=== PATIENT | female | born 1935 | race Caucasian/White ===

== ENCOUNTER 2021-09-21 10:06 | Inpatient (IN) ==
[2021-09-21] MEDS ORDERED: levoFLOXacin 750 MG/150 ML 750 MG/150 ML BAG IVPB ONE (10:14)
[2021-09-21 10:42] LABS: Basophils # 0.1 K/mcL (0.0-0.2); Basophils % 0.7 %; Eosinophils % 0.4 %; Hematocrit 27.5 % (35.3-44.9); Hemoglobin 8.4 g/dL (11.5-15.4); Immature Granulocytes % 0.9 % (0-4); Lymphocytes # 0.9 K/mcL (0.6-4.6); Lymphocytes % 12.7 %; Mean Corpuscular HGB Conc 30.5 g/dL (31.6-35.5); Mean Corpuscular Hemoglobin 27.5 pg (28.0-33.3); Mean Corpuscular Volume 90.2 fL (83.0-100.0); Mean Platelet Volume 10.7 fL (9.4-12.4); Monocytes # 0.9 K/mcL (0.0-1.3); Monocytes % 12.4 %; Neutrophils # 5.4 K/mcL (1.6-8.9); Platelet Count 214 K/mcL (140-400); Red Blood Count 3.05 M/mcL (3.82-4.97); Red Cell Distribution Width 18.5 % (11.5-14.5); Segmented Neutrophils % 72.9 %; White Blood Count 7.4 K/mcL (4.3-11.1)
[2021-09-21 10:54] LABS: INR 1.2; Prothrombin Time 13.7 Seconds (9.4-12.1)
[2021-09-21 10:57] LABS: Activated Partial Thrombo Time 27.4 Seconds (26.0-36.0)
[2021-09-21 11:01] LABS: Albumin 3.3 g/dL (3.5-5.7); Bilirubin,Direct 0.2 mg/dL (0.0-0.2); Bilirubin,Indirect 0.3 mg/dL (0.0-1.0); Bilirubin,Total 0.5 mg/dL (0.3-1.0); Globulin 3.4 g/dL (2.4-3.5); Magnesium 1.2 mg/dL (1.6-2.6); Phosphorous 3.4 mg/dL (2.7-4.5); Potassium 3.4 mEq/L (3.5-5.1); Total Protein 6.7 g/dL (6.4-8.9)
[2021-09-21 11:04] LABS: Troponin I 0.03 ng/mL (< 0.04)
[2021-09-21] MEDS ORDERED: 0.9 % Sodium Chloride 1,000 ML IVC ONE (11:34)
[2021-09-21 12:21] LABS: Bilirubin,Urine Negative (Negative); Blood,Urine Negative (Negative); Clarity,Urine Hazy (Clear); Color,Urine Yellow (Yellow); Glucose,Urine (UA) Normal (Normal); Ketones,Urine Negative (Negative); Leukocyte Esterase,Urine Negative (Negative); Nitrite,Urine Negative (Negative); PH,Urine 5.5 pH Units (5.0-8.0); Protein,Urine Negative (Neg-Trace); Urobilinogen,Urine Normal (Normal)
[2021-09-21] MEDS ORDERED: Naloxone 0.4 MG/ML INJ IVP PRN (16:54)
[2021-09-21] MEDS ORDERED: Melatonin 3 MG TABLET PO PRN (16:56)
[2021-09-21] MEDS ORDERED: Potassium Chloride Elixir 20 MEQ/15 ML UDC PO ONE (17:32)
[2021-09-21 17:38] LABS: ABG Base Excess -2 mEq/L (-2 to 3); ABG HCO3 23 mEq/L (21-27); ABG Oxygen Saturation 96 % (95-98); ABG PCO2 40 mmHg (35-45); ABG PH 7.37 pH Units (7.32-7.45); ABG PO2 82 mmHg (85-104); ABG TCO2 24 mEq/L (20-26)
[2021-09-21] MEDS: 0.9 % Sodium Chloride 1,000 ML IVC SCH (20:19)
[2021-09-21] MEDS: Budesonide/Formoterol 160/4.5 1 PUFF INH IH SCH (20:24)
[2021-09-21] MEDS ORDERED: Acetaminophen 650 MG RECTAL SUPP RC PRN (20:37)
[2021-09-21] MEDS ORDERED: *HR* LORazepam 2 MG/ML VIAL IVP ONE (20:49)
[2021-09-21] MEDS: QUEtiapine Fumarate 25 MG TABLET PO SCH (22:26)
[2021-09-22] MEDS ORDERED: Acetaminophen IV 500 MG/50 ML BAG IVPB ONE ×2 (00:01→03:24)
[2021-09-22] MEDS ORDERED: Ketorolac 15 MG/ML VIAL IVP ONE (00:02)
[2021-09-22] MEDS ORDERED: Acetaminophen IV 1,000 MG/100 ML BAG IVPB ONE ×2 (00:34→03:41)
[2021-09-22] MEDS ORDERED: Haloperidol Lactate 5 MG/ML VIAL IVP ONE (03:00)
[2021-09-22 03:53] LABS: Basophils % 0.4 %; Hematocrit 24.5 % (35.3-44.9); Hemoglobin 7.5 g/dL (11.5-15.4); Immature Granulocytes % 1.8 % (0-4); Lymphocytes # 0.8 K/mcL (0.6-4.6); Lymphocytes % 9.7 %; Mean Corpuscular HGB Conc 30.6 g/dL (31.6-35.5); Mean Corpuscular Hemoglobin 27.7 pg (28.0-33.3); Mean Corpuscular Volume 90.4 fL (83.0-100.0); Mean Platelet Volume 10.8 fL (9.4-12.4); Monocytes # 0.3 K/mcL (0.0-1.3); Monocytes % 3.7 %; Platelet Count 246 K/mcL (140-400); Red Blood Count 2.71 M/mcL (3.82-4.97); Red Cell Distribution Width 18.6 % (11.5-14.5); Segmented Neutrophils % 84.4 %; White Blood Count 8.3 K/mcL (4.3-11.1)
[2021-09-22 04:33] LABS: Calcium 8.7 mg/dL (8.6-10.3); Magnesium 1.7 mg/dL (1.6-2.6); Potassium 3.6 mEq/L (3.5-5.1)
[2021-09-22 06:46] LABS: Adenovirus Not Detected (Not Detect); Bordetella Pertussis Not Detected (Not Detect); Chlamydophila pneumoniae Not Detected (Not Detect); Coronavirus 229E Not Detected (Not Detect); Coronavirus HKU1 Not Detected (Not Detect); Coronavirus NL63 Not Detected (Not Detect); Coronavirus OC43 Not Detected (Not Detect); Human Metapneumovirus Not Detected (Not Detect); Human Rhinovirus/Enterovirus Not Detected (Not Detect); Influenza A Subtype 2009 H1 Not Detected (Not Detect); Influenza B Not Detected (Not Detect); Mycoplasma pneumoniae Not Detected (Not Detect); Parainfluenza Virus 1 Not Detected (Not Detect); Parainfluenza Virus 2 Not Detected (Not Detect); Parainfluenza Virus 3 Not Detected (Not Detect); Parainfluenza Virus 4 Not Detected (Not Detect); Respiratory Syncytial Virus Not Detected (Not Detect); SARS-CoV-2 Not Detected (Not Detect)
[2021-09-22] MEDS: Fluticasone Propionate Nasal 50 MCG/SPRAY BOTTLE NS SCH ×2 (07:38→18:13)
[2021-09-22] MEDS: atenoloL 50 MG TABLET PO SCH (08:52)
[2021-09-22] MEDS: (Potassium 99 MG Tablet) PO SCH (08:52)
[2021-09-22] MEDS: Multivit/Ca/Min/Fe/FA 1 TAB TABLET PO SCH (08:52)
[2021-09-22] MEDS: Loratadine 10 MG TABLET PO SCH (08:52)
[2021-09-22] MEDS: Magnesium Oxide 400 MG TABLET PO SCH (08:52)
[2021-09-22] MEDS ORDERED: POTASSIUM CHLORIDE IN 0.9%NACL 40 MEQ/1,000 ML IV.SOLN IV ONE (09:00)
[2021-09-22] MEDS ORDERED: Aspirin Enteric Coated 81 MG Tablet PO SCH (09:00)
[2021-09-22] MEDS ORDERED: levoFLOXacin 750 MG/150 ML 750 MG/150 ML BAG IVPB SCH (09:00)
[2021-09-22] MEDS: 0.9 % Sodium Chloride 1,000 ML IVC SCH ×3 (09:23→23:11)
[2021-09-22 10:17] LABS: Hematocrit 22.1 % (35.3-44.9); Hemoglobin 6.7 g/dL (11.5-15.4)
[2021-09-22] MEDS: Budesonide/Formoterol 160/4.5 1 PUFF INH IH SCH (10:57)
[2021-09-22] MEDS ORDERED: 0.9 % Sodium Chloride 250 ML IVC SCH (11:00)
[2021-09-22] MEDS: QUEtiapine Fumarate 25 MG TABLET PO SCH (21:24)
[2021-09-22 22:12] LABS: Hematocrit 25.7 % (35.3-44.9); Hemoglobin 7.8 g/dL (11.5-15.4)
[2021-09-23] MEDS ORDERED: *HR* Enoxaparin 30 MG/0.3 ML SYRINGE SQ SCH (06:00)
[2021-09-23 07:50] LABS: Basophils # 0.1 K/mcL (0.0-0.2); Basophils % 0.8 %; Eosinophils # 0.2 K/mcL (0.0-0.6); Eosinophils % 1.4 %; Hematocrit 28.1 % (35.3-44.9); Hemoglobin 8.4 g/dL (11.5-15.4); Immature Granulocytes % 3.3 % (0-4); Lymphocytes # 1.1 K/mcL (0.6-4.6); Lymphocytes % 10.1 %; Mean Corpuscular HGB Conc 29.9 g/dL (31.6-35.5); Mean Corpuscular Hemoglobin 27.5 pg (28.0-33.3); Mean Corpuscular Volume 92.1 fL (83.0-100.0); Mean Platelet Volume 10.3 fL (9.4-12.4); Monocytes % 9.7 %; Neutrophils # 7.7 K/mcL (1.6-8.9); Platelet Count 201 K/mcL (140-400); Red Blood Count 3.05 M/mcL (3.82-4.97); Red Cell Distribution Width 19.2 % (11.5-14.5); Segmented Neutrophils % 74.7 %; White Blood Count 10.4 K/mcL (4.3-11.1)
[2021-09-23 08:16] LABS: Calcium 8.2 mg/dL (8.6-10.3); Potassium 3.4 mEq/L (3.5-5.1)
[2021-09-23] MEDS: Loratadine 10 MG TABLET PO SCH (09:21)
[2021-09-23] MEDS: Magnesium Oxide 400 MG TABLET PO SCH (09:21)
[2021-09-23] MEDS: (Potassium 99 MG Tablet) PO SCH (09:21)
[2021-09-23] MEDS: Multivit/Ca/Min/Fe/FA 1 TAB TABLET PO SCH (09:21)
[2021-09-23] MEDS: D5% in 0.45% NACL 1,000 ML IVC SCH ×2 (09:47→23:25)
[2021-09-23] MEDS: levoFLOXacin 750 MG/150 ML 750 MG/150 ML BAG IVPB SCH (09:48)
[2021-09-23] MEDS: Morphine Sulfate 2 MG/ML SYRINGE IVP PRN ×3 (09:49→20:06)
[2021-09-23] MEDS ORDERED: Levothyroxine Sodium 100 MCG VIAL IVP SCH (15:00)
[2021-09-23] MEDS ORDERED: OLANZapine 10 MG VIAL IM ONE (15:00)
[2021-09-23] MEDS: Levothyroxine Sodium 100 MCG VIAL IVP SCH (15:34)
[2021-09-23] MEDS: FLUoxetine HCl Oral Soln 20 MG/5 ML UDC PO SCH (15:41)
[2021-09-23] MEDS: Fluticasone Propionate Nasal 50 MCG/SPRAY BOTTLE NS SCH (18:44)
[2021-09-23] MEDS ORDERED: Haloperidol Lactate 5 MG/ML VIAL IVP ONE (23:10)
[2021-09-24] MEDS: Morphine Sulfate 2 MG/ML SYRINGE IVP PRN (01:52)
[2021-09-24 07:09] LABS: Basophils # 0.1 K/mcL (0.0-0.2); Basophils % 0.9 %; Eosinophils # 0.1 K/mcL (0.0-0.6); Eosinophils % 2.3 %; Hematocrit 25.8 % (35.3-44.9); Hemoglobin 7.7 g/dL (11.5-15.4); Immature Granulocytes % 2.1 % (0-4); Lymphocytes # 0.8 K/mcL (0.6-4.6); Lymphocytes % 13.6 %; Mean Corpuscular HGB Conc 29.8 g/dL (31.6-35.5); Mean Corpuscular Hemoglobin 27.3 pg (28.0-33.3); Mean Corpuscular Volume 91.5 fL (83.0-100.0); Mean Platelet Volume 10.4 fL (9.4-12.4); Monocytes # 0.6 K/mcL (0.0-1.3); Monocytes % 10.6 %; Neutrophils # 4.1 K/mcL (1.6-8.9); Platelet Count 171 K/mcL (140-400); Red Blood Count 2.82 M/mcL (3.82-4.97); Red Cell Distribution Width 19.4 % (11.5-14.5); Segmented Neutrophils % 70.5 %; White Blood Count 5.7 K/mcL (4.3-11.1)
[2021-09-24 08:13] LABS: BUN/Creatinine Ratio 46 (6-26); Blood Urea Nitrogen 45 mg/dL (8-23); Calcium 8.2 mg/dL (8.6-10.3); Carbon Dioxide 25 mEq/L (23-29); Chloride 117 mEq/L (98-107); Glucose 109 mg/dL (70-105); Osmolality,Calculated 318 (280-300); Sodium 148 mEq/L (136-145); eGFR For African Americans > 60 (> 60); eGFR For Non-African Americans 54 (> 60)
[2021-09-24] MEDS: atenoloL 50 MG TABLET PO SCH (09:18)
[2021-09-24] MEDS: (Potassium 99 MG Tablet) PO SCH (09:18)
[2021-09-24] MEDS: Levothyroxine Sodium 100 MCG VIAL IVP SCH (09:18)
[2021-09-24] MEDS: Magnesium Oxide 400 MG TABLET PO SCH (09:18)
[2021-09-24] MEDS: Loratadine 10 MG TABLET PO SCH (09:18)
[2021-09-24] MEDS: Multivit/Ca/Min/Fe/FA 1 TAB TABLET PO SCH (09:19)
[2021-09-24] MEDS: Potassium Chloride 20 MEQ in D5% in Water 1,000 ML IVC SCH ×2 (10:10→23:42)
[2021-09-24] MEDS: Nystatin POWDER 30 GM BOTTLE TP SCH ×2 (12:10→20:29)
[2021-09-24] MEDS: Fluticasone Propionate Nasal 50 MCG/SPRAY BOTTLE NS SCH (16:59)
[2021-09-24] MEDS ORDERED: Haloperidol Lactate 5 MG/ML VIAL IM PRN (18:17)
[2021-09-24] MEDS ORDERED: Acetaminophen 650 MG RECTAL SUPP RC PRN (23:22)
[2021-09-25] MEDS ORDERED: Ketorolac 15 MG/ML VIAL IVP ONE (03:45)
[2021-09-25 05:52] LABS: Basophils % 0.5 %; Eosinophils # 0.1 K/mcL (0.0-0.6); Eosinophils % 0.6 %; Hemoglobin 7.9 g/dL (11.5-15.4); Immature Granulocytes % 1.7 % (0-4); Lymphocytes % 12.8 %; Mean Corpuscular HGB Conc 30.4 g/dL (31.6-35.5); Mean Corpuscular Hemoglobin 27.2 pg (28.0-33.3); Mean Corpuscular Volume 89.7 fL (83.0-100.0); Mean Platelet Volume 10.3 fL (9.4-12.4); Monocytes # 0.8 K/mcL (0.0-1.3); Monocytes % 10.3 %; Neutrophils # 5.8 K/mcL (1.6-8.9); Platelet Count 194 K/mcL (140-400); Red Cell Distribution Width 19.2 % (11.5-14.5); Segmented Neutrophils % 74.1 %; White Blood Count 7.9 K/mcL (4.3-11.1)
[2021-09-25 06:38] LABS: BUN/Creatinine Ratio 38 (6-26); Blood Urea Nitrogen 34 mg/dL (8-23); Calcium 8.4 mg/dL (8.6-10.3); Carbon Dioxide 23 mEq/L (23-29); Chloride 115 mEq/L (98-107); Glucose 131 mg/dL (70-105); Osmolality,Calculated 313 (280-300); Potassium 3.3 mEq/L (3.5-5.1); Sodium 147 mEq/L (136-145); eGFR For African Americans > 60 (> 60); eGFR For Non-African Americans > 60 (> 60)
[2021-09-25] MEDS ORDERED: Furosemide 20 MG/2 ML VIAL IVP ONE (08:30)
[2021-09-25] MEDS: levoFLOXacin 750 MG/150 ML 750 MG/150 ML BAG IVPB SCH (08:52)
[2021-09-25] MEDS: Loratadine 10 MG TABLET PO SCH (08:53)
[2021-09-25] MEDS: Magnesium Oxide 400 MG TABLET PO SCH (08:53)
[2021-09-25] MEDS: (Potassium 99 MG Tablet) PO SCH (08:54)
[2021-09-25] MEDS: Multivit/Ca/Min/Fe/FA 1 TAB TABLET PO SCH (08:54)
[2021-09-25] MEDS: Nystatin POWDER 30 GM BOTTLE TP SCH ×2 (08:54→21:17)
[2021-09-25] MEDS: atenoloL 50 MG TABLET PO SCH (08:54)
[2021-09-25] MEDS: Levothyroxine Sodium 100 MCG VIAL IVP SCH (10:55)
[2021-09-25] MEDS: Potassium Chloride 20 MEQ in D5% in Water 1,000 ML IVC SCH (15:25)
[2021-09-25] MEDS: Fluticasone Propionate Nasal 50 MCG/SPRAY BOTTLE NS SCH (16:51)
[2021-09-25] MEDS: FLUoxetine HCl Oral Soln 20 MG/5 ML UDC PO SCH (16:51)
[2021-09-25] MEDS: Morphine Sulfate 2 MG/ML SYRINGE IVP PRN ×3 (17:08→23:06)
[2021-09-25] MEDS ORDERED: Atropine 1% Opth Drops 100 DROP/5 ML BOTTLE SL PRN (18:04)
[2021-09-25] MEDS: *HR* LORazepam 2 MG/ML VIAL IVP PRN (21:59)
[2021-09-26] MEDS: Nystatin POWDER 30 GM BOTTLE TP SCH ×2 (10:23→20:46)
[2021-09-26] MEDS: Levothyroxine Sodium 100 MCG VIAL IVP SCH (10:23)
[2021-09-26] MEDS: Morphine Sulfate 2 MG/ML SYRINGE IVP PRN ×2 (16:50→20:37)
[2021-09-26] MEDS: *HR* LORazepam 2 MG/ML VIAL IVP PRN ×2 (17:04→21:16)
[2021-09-26] MEDS ORDERED: Dextrose Gel 15 GM/37.5 ML TUBE PO PRN ×2 (21:32)
[2021-09-26] MEDS ORDERED: *HR* Dextrose 50 % in Water (Syg) 50 ML SYRINGE IVP PRN (21:32)
[2021-09-26] MEDS ORDERED: D5% in Water 1,000 ML IVC PRN (21:32)
[2021-09-27] MEDS: Morphine Sulfate 2 MG/ML SYRINGE IVP PRN ×3 (04:02→14:42)
[2021-09-27 07:19] VITALS: BP 110/53; PULSE 65; RESP 22; TEMP 98.4; O2SAT 97
[2021-09-27] MEDS: *HR* LORazepam 2 MG/ML VIAL IVP PRN ×2 (09:40→14:42)
[2021-09-27] MEDS: Nystatin POWDER 30 GM BOTTLE TP SCH (09:49)
[2021-09-27] MEDS: Levothyroxine Sodium 100 MCG VIAL IVP SCH (10:13)
[2021-09-27] MEDS: FLUoxetine HCl Oral Soln 20 MG/5 ML UDC PO SCH (14:36)
== END 2021-09-27 17:34 | disposition hospice, inpatient (51) | DRG 193 ==
LOC: EMEROOPIK 10:06 → INPPIK 10:06
PROVIDERS: ADMIT Internal Medicine; ATTEND Internal Medicine

== ENCOUNTER 2021-09-27 16:11 | Inpatient (IN) ==
[2021-09-27] MEDS ORDERED: Atropine 1% Opth Drops 100 DROP/5 ML BOTTLE SL PRN (16:42)
[2021-09-27] MEDS ORDERED: Bisacodyl 10 MG RECTAL SUPPOSITORY RC PRN (17:41)
[2021-09-27] MEDS: *HR* LORazepam 2 MG/ML VIAL IVP PRN ×2 (17:48→20:00)
[2021-09-27] MEDS: Morphine Sulfate 2 MG/ML SYRINGE IVP PRN ×2 (17:49→19:03)
== END 2021-09-28 03:00 | disposition expired | DRG 951 ==
LOC: INPPIK 17:30
PROVIDERS: ADMIT Internal Medicine; ATTEND Internal Medicine